=== PATIENT | male | born 1980 | race Two or more races ===

== ENCOUNTER 2021-01-19 20:09 | Emergency (ER) | payer MEDICAID, OTHER ==
[~2021-01-19] VITALS: Ht 134.6 cm; Wt 59.9 kg
[2021-01-19 22:48] VITALS: BP 136/92
== END 2021-01-19 22:40 | disposition home or self-care (01) ==
LOC: ER 20:09
DX: S09.8XXA Other specified injuries of head, initial encounter (principal); M62.838 Other muscle spasm; R51.9 Headache, unspecified; W22.8XXA Striking against or struck by other objects, initial encounter; Y93.89 Activity, other specified; Y92.89 Other specified places as the place of occurrence of the external cause; Y99.8 Other external cause status
CPT/HCPCS: 70450; 72125